=== PATIENT | male | born 1995 | race Caucasian/White ===

== ENCOUNTER → 2020-10-10 16:02 | Outpatient (CLI) | payer OTHER, SELFPAY ==
--- NOTE | 2020-10-10 | DI.ECHO.S_ITS ---
[facility] +---------+ : : [address] : : : : [id number] : : : : Phone: [phone]---------+ Echocardiogram Report + + :Name: LA MELCHOR Study Date: 10/10/2020 Height: 72 in : :[facility] ReadingLocation: Weight: 202 lb : : Gender: Male BSA: 2.1 m2 : :: 1995 Age: 25 yrs BP: 165/86 mmHg: :Reason For Study: Angina : :Ordering Physician: WILBER, : :HUMA Performed By: Fernanda Hayward : :Referring: HUMA MERINO : + + Interpretation Summary Normal both left and right ventricle size and function. The ejection fraction is 55-60%. Normal both atria. No valvular abnormality. Comparison is made with the echocardiogram of 05/05/2020, there has been no significant change. Procedure: A two-dimensional transthoracic echocardiogram with color flow and Doppler was performed. The study quality was technically adequate. Comparison is made with the echocardiogram of 05/05/2020. The patient was in sinus bradycardia with heart rates between 52-58 bpm during the exam. Left Ventricle: The left ventricle is normal in size and wall thickness. The ejection fraction is estimated to be 55-60%. There are no focal wall motion abnormalities. Right Ventricle: The right ventricle is normal in size and function. Atria: The left atrial size is normal. Right atrial size is normal. There is no Doppler evidence for an interatrial shunt. Mitral Valve: The mitral valve is normal in structure and function. There is trace mitral regurgitation. Aortic Valve: The aortic valve is trileaflet. The aortic valve opens well. No aortic regurgitation is present. Tricuspid Valve: The tricuspid valve is normal in structure and function. There is a trace or physiologic amount of tricuspid regurgitation. The right ventricular systolic pressure is estimated to be at least 26 mmHg based on an estimated right atrial pressure of 3 mm Hg. Pulmonic Valve: The pulmonic valve leaflets are thin and pliable; valve motion is normal. There is a trace or physiologic amount of pulmonic regurgitation. Great Vessels: The aortic root is normal size. The ascending aorta is normal in size. The pulmonary artery is normal size. The IVC is of normal diameter and collapses greater than 50% with a sniff. This suggests a low right atrial pressure of 3 mm Hg. Pericardium/ Pleura There is no pericardial effusion. MMode/2D Measurements & Calculations LVIDd: 5.4 cm LVOT diam: 2.2 cm LVIDs: 3.1 cm Ao root diam: 3.5 cm FS: 42.7 % asc Aorta Diam: 3.0 cm IVSd: 0.75 cm Ao Arch Diam (distal): 2.8 cm LVPWd: 0.97 cm LV arreola. diameter/BSA (cm/m^2): 2.5 LV sys. diameter/BSA (cm/m^2): 1.5 LA A2 area: 20.6 cm2 RA long axis: 4.3 cm LA A4 area: 20.0 cm2 RA area: 16.2 cm2 LA length (vol): 5.0 cm RA vol: 51.3 ml LA vol: 69.8 ml RA : 24.0 ml/m2 LA vol index: 32.6 ml/m2 IVC diam: 2.0 cm RVD1 (basal): 3.9 cm TAPSE: 3.3 cm Doppler Measurements & Calculations Ao V2 max: 153.9 cm/sec LVOT Max Deniz: 113.2 cm/sec Ao V2 mean: 109.6 cm/sec LV V1 max P.4 mmHg Ao max P.5 mmHg LV V1 VTI: 23.7 cm Ao mean P.4 mmHg JESSE(I,D): 2.8 cm2 Ao V2 VTI: 32.2 cm JESSE(V,D): 2.8 cm2 sev ratio: 0.73 JESSE indexed to BSA (cm^2/m^2): 1.3 MV E max deniz: 105.6 cm/sec TR max deniz: 241.0 cm/sec MV A max deniz: 56.3 cm/sec TR max P.2 mmHg MV E/A: 1.9 PA V2 max: 97.1 cm/sec Med Peak E' Deniz: 15.3 cm/sec PA V2 mean: 67.4 cm/sec E/E' med: 6.9 PA mean P.0 mmHg Lat Peak E' Deniz: 13.0 cm/sec PA Accel Time: 0.14 sec E/E' lat: 8.1 E/e' average: 7.5 MV dec time: 0.26 sec SV(LVOT): 88.9 ml Electronically signed by: Juan R Weiss on Reading Physician:10/10/2020 05:47 PM
== END ==
PROVIDERS: Referring Provider Orthopaedic Surgery; Visit Provider Orthopaedic Surgery
DX: I20.9 Angina pectoris, unspecified (principal)
CPT/HCPCS: 93306